=== PATIENT | female | born 1960 | race Caucasian/White ===

== ENCOUNTER → 2017-08-29 | Outpatient (CLI) | payer OTHER | LOC: BMCIMAGING 11:38 | PROVIDERS: ATTEND Emergency Medicine | DX: M79.645 Pain in left finger(s) (principal) ==

== ENCOUNTER → 2018-02-07 | Outpatient (CLI) | payer OTHER | LOC: FIMAGING 13:18 | PROVIDERS: ATTEND Internal Medicine | DX: N60.91 Unspecified benign mammary dysplasia of right breast (principal); N60.92 Unspecified benign mammary dysplasia of left breast ==